=== PATIENT | male | born 1935 | race Caucasian/White ===

== ENCOUNTER 2020-01-23 09:28 | Emergency (ER) | payer MEDICARE, SELFPAY ==
[2020-01-23 09:35] VITALS: BP 145/100; PULSE 73; RESP 16; TEMP 36.2; O2SAT 98
--- NOTE | 2020-01-23 09:58 | ED.GENADULT ---
HPI - General Adult General Chief complaint: Wound/Laceration Stated complaint: stitches removal Time Seen by Provider: 01/23/20 09:58 Source: patient and RN notes reviewed Mode of arrival: ambulatory Limitations: no limitations History of Present Illness HPI narrative: 84-year-old male who presents to express care for removal of stitches from his left 3rd finger kim aspect which were placed 01/10/2020 at [facility]. Patient states that he was accidently bit by his own dog and had to have 3 sutures to close wound on his 3rd left finer. Patient states that he just completed antibiotic that was prescribed by ER provider when he had the stitches. Patient has healing approximated wound to kim aspect of 3rd left finger between PIP and DIP tissue area, some granulation tissue noted along flap areas, no redness or drainage noted, no acute discomfort to area voiced. MD complaint: suture removal Onset (ago): week(s) (2) Location: upper extremity (left 3rd finger) Associated symptoms: denies other symptoms Treatments prior to arrival: other (completed doxycycline antibiotics which were ordered at time sutures placed) Related Data Home Medications Medication Instructions Recorded Confirmed acetaminophen 650 mg PO DIRECTED 01/23/20 01/23/20 alprazolam 0.5 mg PO DIRECTED 01/23/20 01/23/20 amlodipine 5 mg PO DAILY 01/23/20 01/23/20 dicyclomine 10 mg PO DAILY 01/23/20 01/23/20 hydrochlorothiazide 12.5 mg PO DAILY 01/23/20 01/23/20 omeprazole 20 mg PO DAILY 01/23/20 01/23/20 paroxetine HCl 20 mg PO DAILY 01/23/20 01/23/20 simvastatin 20 mg PO DAILY 01/23/20 01/23/20 tamsulosin 0.4 mg PO DIRECTED 01/23/20 01/23/20 Allergies Allergy/AdvReac Type Severity Reaction Status Date / Time Penicillins Allergy Itching Verified 01/23/20 09:52 Review of Systems Review of Systems: Narrative: CONSTITUTIONAL: Denies fever, chills, or sweats. EYES: Denies visual changes, redness, or discharge. ENT: Denies rhinorrhea, congestion, sore throat, or otalgia. CARDIOVASCULAR: Denies chest pain, palpitations, or edema. RESPIRATORY: Denies cough or dyspnea. GASTROINTESTINAL: Denies abdominal pain, nausea, vomiting, or diarrhea. GENITOURINARY: Denies dysuria or hematuria. SKIN: Denies rash or itching, healing flap type of laceration left 3rd finger kim area with 3 sutures noted. MUSCULOSKELETAL: Denies back pain, joint pain, or myalgia. NEUROLOGIC: Denies headache, numbness, or weakness. PSYCHIATRIC: Denies anxiety or depression. All systems reviewed & are unremarkable except as noted in HPI and below PMFSH Past Medical History Medical History (Updated 01/23/20 @ 10:54 by Omaira Russell NP) Benign prostate hyperplasia Hyperlipidemia Hypertension Surgical History Surgical History (Updated 01/23/20 @ 11:02 by Omaira Russell NP) History of total bilateral knee replacement Comments At time of signature, agree with nursing past medical, surgical, social history. There is no relevant family history pertinent to the presenting complaint Exam Narrative: Exam Narrative: GENERAL: Well-appearing, well-nourished, and in no acute distress. HEAD: Normocephalic, atraumatic. EYES: PERRLA and EOMI. ENT: Nares clear, no rhinorrhea or epistaxis. Mucous membranes moist. NECK: Supple. CHEST: Clear to auscultation. No respiratory distress. HEART: Regular rate and rhythm. No murmur heard. Normal peripheral pulses. ABDOMEN: Soft, nontender, nondistended, normal active bowel sounds. EXTREMITIES: Normal range of motion. No edema. SKIN: Warm, dry, no rash. left 3rd finger kim area between PIP and DIP with wound edges healing with granulation tissue noted, no redness, or any drainage noted to site. Patient has full mobility, sensation and circulation intact to left hand and fingers. NEURO: No focal deficits. Alert and oriented x3. Course Vital Signs Vital signs: Vital Signs Temperature 36.2 C L 01/23/20 09:35 Pulse Rate 7
== END 2020-01-23 10:16 | disposition home or self-care (01) ==
PROVIDERS: Emergency Provider Registered Nurse
DX: S61.253D Open bite of left middle finger without damage to nail, subsequent encounter (principal); W54.0XXA Bitten by dog, initial encounter; N40.0 Benign prostatic hyperplasia without lower urinary tract symptoms; E78.5 Hyperlipidemia, unspecified; I10 Essential (primary) hypertension; Z96.653 Presence of artificial knee joint, bilateral
CPT/HCPCS: 99211; G0463